=== PATIENT | female | born 1955 | race Hispanic/Latino ===

== ENCOUNTER 2024-02-29 11:08 | Outpatient (CLI) | payer OTHER | END 2024-02-29 11:09 | disposition home or self-care (01) | LOC: NAV RAD 11:08 | PROVIDERS: ATTEND Family Medicine | DX: M17.0 Bilateral primary osteoarthritis of knee (principal); M25.562 Pain in left knee; M25.561 Pain in right knee; M47.26 Other spondylosis with radiculopathy, lumbar region; M51.16 Intervertebral disc disorders with radiculopathy, lumbar region | CPT/HCPCS: 72100 ==